=== PATIENT | female | born 1960 | race Hispanic/Latino ===

== ENCOUNTER 2019-03-25 14:12 | Emergency (ER) | payer BC ==
[2019-03-25 15:18] LABS: Basophils % (Auto) 1.1 % (0.0-1.8); Eosinophils # (Auto) 0.1 K/mm3 (0.0-0.4); Eosinophils % (Auto) 1.3 % (0.0-4.3); Hematocrit 41.9 % (30.3-42.9); Lymphocytes # (Auto) 1.2 K/mm3 (1.2-5.4); Lymphocytes % (Auto) 27.7 % (13.4-35.0); Mean Corpuscular HGB Conc 34 % (30-34); Mean Corpuscular Volume 92 fl (79-97); Monocytes # (Auto) 0.4 K/mm3 (0.0-0.8); Platelet Count 279 K/mm3 (140-440); Red Blood Count 4.56 M/mm3 (3.65-5.03); Red Cell Distribution Width 15.8 % (13.2-15.2)
[2019-03-25 15:43] LABS: Alanine Aminotransferase 49 units/L (7-56); Albumin 4.1 g/dL (3.9-5); BUN/Creatinine Ratio 13; Blood Urea Nitrogen 9 mg/dL (7-17); Calcium 9.4 mg/dL (8.4-10.2); Hemolysis Index 8
[2019-03-25] MEDS ORDERED: NACL 0.9% 1000 ML 1,000 ML IV ONE ×2 (15:49→17:28)
--- NOTE | 2019-03-25 16:57 | Emergency Department Report ---
<LIBBY ROSAS - Last Filed: 03/25/19 16:52> ED Abdominal Pain HPI - General Chief Complaint: Abdominal Pain Stated Complaint: APPENDIX AREA PAIN Time Seen by Provider: 03/25/19 15:35 Source: patient Mode of arrival: Ambulatory Limitations: No Limitations - History of Present Illness Initial Comments: 58-year-old female comes in complaining of right lower quadrant pain for 2 days. Patient reports that the pain has gotten worse today. She reports that the pain is dull and is located in her right lower quadrant. Patient reports that the pain is worse when you palpate or lying back. Patient admits to nausea and vomiting. Patient has a past medical history of hypertension and chronic back pain. Patient reports he had surgery on her back. MD Complaint: abdominal pain Onset/Timin -: days(s) Location: RLQ Radiation: none Migration to: no migration Severity: severe Severity scale (0 -10): 8 Quality: aching, dull Consistency: constant Improves With: nothing Worsens With: movement Associated Symptoms: nausea, vomiting - Related Data Previous Rx's Medication Instructions Recorded Last Taken Type Acetaminophen [Acetaminophen TAB] 1,000 mg PO Q6HR PRN #30 tablet 03/25/19 Unknown Rx Dicyclomine [Bentyl] 10 mg PO QID PRN #40 bottle 03/25/19 Unknown Rx Allergies Allergy/AdvReac Type Severity Reaction Status Date / Time codeine Allergy Anaphylaxis Verified 03/25/19 14:20 hydromorphone Allergy Anaphylaxis Verified 03/25/19 14:20 Penicillins Allergy Anaphylaxis Verified 03/25/19 14:20 ED Review of Systems Comment: All other systems reviewed and negative ED Past Medical Hx - Past Medical History Hx Hypertension: Yes - Surgical History Additional Surgical History: SPINE SURGERY X 6 - Social History Smoking Status: Never Smoker Substance Use Type: Alcohol - Medications Home Medications: Home Medications Medication Instructions Recorded Confirmed Last Taken Type Acetaminophen [Acetaminophen TAB] 1,000 mg PO Q6HR PRN #30 tablet 03/25/19 Unknown Rx Dicyclomine [Bentyl] 10 mg PO QID PRN #40 bottle 03/25/19 Unknown Rx ED Physical Exam - General Limitations: No Limitations General appearance: alert, in no apparent distress - Head Head exam: Present: atraumatic, normocephalic - Eye Eye exam: Present: normal appearance - ENT ENT exam: Present: mucous membranes moist - Neck Neck exam: Present: normal inspection - Respiratory Respiratory exam: Present: normal lung sounds bilaterally. Absent: respiratory distress - Cardiovascular Cardiovascular Exam: Present: regular rate, normal rhythm. Absent: systolic murmur, diastolic murmur, rubs, gallop - GI/Abdominal GI/Abdominal exam: Present: soft, tenderness (right lower quadrant), normal bow el sounds - Extremities Exam Extremities exam: Present: normal inspection - Back Exam Back exam: Present: normal inspection - Neurological Exam Neurological exam: Present: alert, oriented X3 - Psychiatric Psychiatric exam: Present: normal affect, normal mood - Skin Skin exam: Present: warm, dry, intact, normal color. Absent: rash ED Medical Decision Making - Lab Data Result diagrams: 03/25/19 14:58 03/25/19 14:58 - Medical Decision Making 58-year-old female comes in for right lower quadrant pain. CBC CMP and lipase CT of contrast of abdomen and pelvis has been ordered. Analysis is pending. ED Disposition Clinical Impression: Abdominal pain Qualifiers: Abdominal location: right lower quadrant Qualified Code(s): R10.31 - Right lower quadrant pain Disposition: DC-01 TO HOME OR SELFCARE Condition: Stable Instructions: Abdominal Pain (ED) Prescriptions: Acetaminophen [Acetaminophen TAB] 1,000 mg PO Q6HR PRN #30 tablet PRN Reason: pain Dicyclomine [Bentyl] 10 mg PO QID PRN #40 bottle PRN Reason: abdominal spasm Referrals: HIEU NGUYỄN,CASIE [Other] - 3-5 Days Forms: Work/School Release Form(ED) <BENNETT MARTE - Last Filed: 03/25/19 20:32> ED Review of Systems ROS: Stated complaint: APPENDIX AREA PAIN Other details as noted in HPI ED Course Vital Signs 03/25/19 03/25/19 03/25/19 14:27 16:23 19:48 Temperature 98.1 F 98.7 F Pulse Rate 103 H 82 75 Respiratory 22 17 14 Rate Blood Pressure 151/103 Blood Pressure 161/100 191/97 [Right] O2 Sat by Pulse 96 100 97 Oximetry ED Medical Decision Making - Lab Data Result diagrams: 03/25/19 14:58 03/25/19 14:58 - Radiology Data Radiology results: report reviewed, image reviewed Patient: DELMIS MANCILLA MR#: [id number] : 1960 Acct:[id number] Age/Sex: 58 / F ADM Date: 03/25/19 Loc: ED Attending Dr: Ordering Physician: SHERRELL LOUISE Date of Service: 03/25/19 Procedure(s): CT abdomen pelvis w con Accession Number(s): [id number] cc: SHERRELL OLUISE PROCEDURE: CT ABDOMEN PELVIS W CON TECHNIQUE: Computerized axial tomography of the abdomen and pelvis was performed after the administration of IV iodinated nonionic contrast. CT DOSE LENGTH PRODUCT: 1676.6 mGycm HISTORY: rlg pain and N/V COMPARISONS: None . FINDINGS: Visualized lower thorax: No significant abnormality. Liver: Normal size and attenuation. Spleen: Normal size and attenuation. Gallbladder and biliary system: Patient is status post cholecystectomy Pancreas: Normal. Adrenals: Normal. Kidneys: Normal. GI tract: There is evidence for prior gastric surgery. The appendix is identified and is unremarkable. Lymph nodes and mesentery: Normal. Vasculature: Normal.. Bladder: Normal. Reproductive organs: Normal. Peritoneum: No free fluid. 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 IMPRESSION: Status post cholecystectomy No acute abnormality identified abdomen or pelvis Kyphoplasty from T10 through L5 This document is electronically signed by Jovanni Prasad MD., March 25 2019 07:19:16 PM ET Transcribed By: CORWIN Dictated By: KASSIDY PRASAD MD Electronically Authenticated By: KASSIDY PRASAD MD Signed Date/Time: 03/25/191919 DD/ 43 TD/TT: 03/25/191843 - Medical Decision Making ct abd pelvis normal, will dc to home as dxd with addominal pain pt will follow up with pcp in 2 days, return to ed if symptoms worsen or unable to tolerate jose. pt verbalized agreement and understanding of discharge plan. Critical care attestation.: If time is entered above; I have spent that time in minutes in the direct care of this critically ill patient, excluding procedure time. ED Disposition Is pt being admited?: No Does the pt Need Aspirin: No Time of Disposition: 20:32
[2019-03-25 17:20] LABS: Color,Urine Straw (Yellow)
[2019-03-25 17:21] LABS: Bacteria,Urine 1+ /HPF (Negative); Bilirubin,Urine NEG (Negative); Blood,Urine SM (Negative); Protein,Urine <15 mg/dL mg/dL (Negative); Urobilinogen,Urine < 2.0 mg/dL (<2.0); WBC,Urine < 1.0 /HPF (0.0-6.0)
--- NOTE | 2019-03-25 19:20 | Cat Scan Report ---
PROCEDURE: CT ABDOMEN PELVIS W CON TECHNIQUE: Computerized axial tomography of the abdomen and pelvis was performed after the administr ation of IV iodinated nonionic contrast. CT DOSE LENGTH PRODUCT: 1676.6 mGycm HISTORY: rlg pain and N/V COMPARISONS: None . FINDINGS: Visualized lower thorax: No significant abnormality. Liver: Normal size and attenuation. Spleen: Normal size and attenuation. Gallbladder and biliary system: Patient is status post cholecystectomy Pancreas: Normal. Adrenals: Normal. Kidneys: Normal. GI tract: There is evidence for prior gastric surgery. The appendix is identified and is unremarkable . Lymph nodes and mesentery: Normal. Vasculature: Normal.. Bladder: Normal. Reproductive organs: Normal. Peritoneum: No free fluid. 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 IMPRESSION: Status post cholecystectomy No acute abnormality identified abdomen or pelvis Kyphoplasty from T10 through L5 This document is electronically signed by Jovanni Mckeon MD., March 25 2019 07:19:16 PM ET
[2019-03-25 20:46] VITALS: BP 135/69
== END 2019-03-25 20:44 | disposition home or self-care (01) ==
LOC: ED 14:12
DX: R10.31 Right lower quadrant pain (principal); R11.2 Nausea with vomiting, unspecified; I10 Essential (primary) hypertension; Z98.890 Other specified postprocedural states; Z79.899 Other long term (current) drug therapy; Z88.6 Allergy status to analgesic agent; Z88.0 Allergy status to penicillin
CPT/HCPCS: 36415; 74177; 80053; 81001; 85025; 96360; 99284; J7030; Q9967